=== PATIENT | female | born 2000 | race American Indian/Alaskan Native ===

== ENCOUNTER 2022-10-08 02:16 | Inpatient (IN) | payer SELFPAY ==
[2022-10-08] MEDS ORDERED: Ondansetron 4 MG/2 ML SDV IVPUSH PRN (03:46)
[2022-10-08] MEDS ORDERED: Lidocaine 1% 50 ML MDV INJECT PRN (03:46)
[2022-10-08] MEDS ORDERED: Ampicillin 2 GM in Sodium Chloride 0.9% 100 ML IV ONE (03:46)
[2022-10-08] MEDS ORDERED: Sodium Chloride 0.9% 20 ML SDV IV PRN (03:46)
[2022-10-08] MEDS ORDERED: Sodium Chloride 0.9% 10 ML Syringe FLUSH PRN (03:46)
[2022-10-08] MEDS ORDERED: Misoprostol 200 MCG Tab PO PRN (03:46)
[2022-10-08] MEDS ORDERED: Carboprost Tromethamine 250 MCG/1 ML Amp IM PRN (03:46)
[2022-10-08] MEDS ORDERED: Tranexamic Acid 1,000 MG in Sodium Chloride 0.9% 100 ML IV PRN ×2 (03:46→15:20)
[2022-10-08] MEDS ORDERED: Sodium Chloride 0.9% 2.5 ML Syringe FLUSH PRN (03:46)
[2022-10-08] MEDS ORDERED: Water For Irrigation,Sterile 1,000 ML Container IRR PRN (03:46)
[2022-10-08] MEDS ORDERED: Methylergonovine 0.2 MG/1 ML Amp IM PRN ×2 (03:46→15:20)
[2022-10-08] MEDS: Lactated Ringers 1,000 ML IV SCH ×3 (03:50→13:00)
[2022-10-08] MEDS ORDERED: Oxytocin/0.9 % Sodium Chloride 30 UNIT/500 ML BAG IV SCH ×2 (04:00→09:30)
[2022-10-08] MEDS: Butorphanol 1 MG/ML SDV IVPUSH PRN ×2 (06:00→10:10)
[2022-10-08] MEDS: Ampicillin 1 GM in Sodium Chloride 0.9% 50 ML IV SCH ×2 (08:00→11:53)
[2022-10-08] MEDS ORDERED: Terbutaline 1 MG/ML SDV SUBCUT PRN (09:24)
[2022-10-08] MEDS ORDERED: Ropivacaine/PF 400 MG/200 ML PCA ONE (11:19)
[2022-10-08] MEDS ORDERED: ePHEDrine 50 MG/ML SDV IVPUSH PRN (11:39)
[2022-10-08] MEDS ORDERED: Phenylephrine HCl In 0.9% NaCl 1 MG/10 ML Vial IVPUSH PRN (11:39)
[2022-10-08] MEDS ORDERED: Ropivacaine HCl/PF 400 MG in Premix Bag 1 BAG EPIDUR SCH (11:45)
[2022-10-08] MEDS ORDERED: Ibuprofen 400 MG Tab PO PRN (15:20)
[2022-10-08] MEDS ORDERED: Bisacodyl 10 MG Supp RECTAL PRN (15:20)
[2022-10-08] MEDS ORDERED: Acetaminophen 500 MG Tab PO PRN (15:20)
[2022-10-08] MEDS ORDERED: Benzocaine/Menthol 20%-0.5% Spray 78 GM Cannister TOP PRN (15:20)
[2022-10-08] MEDS: Witch Hazel Medicated Pads 40/Jar TOP PRN (18:30)
[2022-10-08] MEDS: Acetaminophen 500 MG Tab PO PRN (18:52)
[2022-10-08] MEDS: Ibuprofen 800 MG Tab PO PRN (18:54)
[2022-10-09] MEDS: Ibuprofen 800 MG Tab PO PRN ×2 (07:11→20:32)
[2022-10-09] MEDS: Prenatal Multivitamin with Calcium/Folic Acid/Iron Tab PO SCH (09:11)
[2022-10-09] MEDS: Lanolin 100% Cream 7 GM Tube TOP PRN ×2 (09:11→20:32)
[2022-10-09] MEDS: Docusate Sodium 100 MG Cap PO PRN (09:11)
[2022-10-10] MEDS: Ibuprofen 800 MG Tab PO PRN (05:37)
[2022-10-10] MEDS: Witch Hazel Medicated Pads 40/Jar TOP PRN (09:06)
[2022-10-10] MEDS: Docusate Sodium 100 MG Cap PO PRN (09:07)
[2022-10-10] MEDS: Acetaminophen 500 MG Tab PO PRN (09:07)
[2022-10-10] MEDS: Prenatal Multivitamin with Calcium/Folic Acid/Iron Tab PO SCH (09:07)
== END 2022-10-10 11:45 | disposition home or self-care (01) | DRG 807 ==
LOC: MW.OBCHECK 02:16 → MW.OB 02:19 → MW.OBCHECK 03:46 → OBSVTOIN 14:45 → MW.OB 19:02
PROVIDERS: ADMIT Obstetrics & Gynecology; ATTEND Obstetrics & Gynecology
PROC: 10E0XZZ Delivery of Products of Conception, External Approach (ICD-10-PCS; principal; 2022-10-08)
PROC: 3E0R3BZ Introduction of Anesthetic Agent into Spinal Canal, Percutaneous Approach (ICD-10-PCS; 2022-10-08)
PROC: 00HU33Z Insertion of Infusion Device into Spinal Canal, Percutaneous Approach (ICD-10-PCS; 2022-10-08)
DX: O48.0 Post-term pregnancy (principal); Z37.0 Single live birth; Z3A.36 36 weeks gestation of pregnancy; O70.0 First degree perineal laceration during delivery; Z20.822 Contact with and (suspected) exposure to COVID-19; Z3A.41 41 weeks gestation of pregnancy
CPT/HCPCS: 36415; 51702; 59025; 59409; 59414; 82803; 84112; 85014; 85018; 85027; 86592; 86850; 86900; 86901; A9270-GY; J0290; J0595; J2590; J2795; J7050; J7120; U0002